=== PATIENT | male | born 1945 | race Caucasian/White ===

== ENCOUNTER 2017-07-01 11:43 | Day surgery (SDC) | payer MEDICARE ==
[~2017-07-01] VITALS: Ht 175.3 cm; Wt 84.0 kg
[~2017-07-01 11:43] MED LIST: AMOCLA500 PO; HYDACE10B PO; HYDACE5 PO; LISI10 PO; LOSA50 PO; MORP15ER; NAPR550 PO; PRED20 PO; PSEU120ER; RANI150
== END 2017-07-01 15:24 | disposition home or self-care (01) ==
LOC: ORSCSDS 11:43
DX: Z12.11 Encounter for screening for malignant neoplasm of colon (principal); D12.2 Benign neoplasm of ascending colon; D12.3 Benign neoplasm of transverse colon; D12.4 Benign neoplasm of descending colon; K63.5 Polyp of colon; K62.1 Rectal polyp; K64.8 Other hemorrhoids; K57.30 Diverticulosis of large intestine without perforation or abscess without bleeding; Z86.010 Personal history of colon polyps; F17.210 Nicotine dependence, cigarettes, uncomplicated
CPT/HCPCS: 88305; J7120

== ENCOUNTER → 2024-03-31 | Outpatient (CLI) | payer MEDICARE ==
[2024-04-03 13:28] LABS: AMPHETAMINE,URN,QUANT 1448 ng/mL; MDA,URN,QUANT <200 ng/mL; MDEA,URN,QUANT <200 ng/mL; MDMA,URN,QUANT <200 ng/mL; METHAMPHETAMINE,URN,QUANT <200 ng/mL; PHENTERMINE,URN,QUANT <200 ng/mL
== END | disposition home or self-care (01) ==
LOC: LAB SHORT 07:52 → LAB 07:52
PROVIDERS: Physician Assistant
DX: G89.4 Chronic pain syndrome (principal); Z79.899 Other long term (current) drug therapy
CPT/HCPCS: G0480